=== PATIENT | female | born 2000 | race Caucasian/White ===

== ENCOUNTER 2018-04-28 21:49 | Emergency (ER) | payer BC ==
[~2018-04-28] VITALS: Ht 170.2 cm; Wt 102.7 kg
[2018-04-28 21:56] VITALS: BP 136/97; TEMP 97.6
[2018-04-28] MEDS ORDERED: PROZAC60 MG (22:02)
[2018-04-28 23:28] VITALS: PULSE 89
== END 2018-04-28 23:30 | disposition home or self-care (01) ==
LOC: COL.ER 21:49
DX: S61.211A Laceration without foreign body of left index finger without damage to nail, initial encounter (principal); W26.0XXA Contact with knife, initial encounter; Y92.009 Unspecified place in unspecified non-institutional (private) residence as the place of occurrence of the external cause

== ENCOUNTER 2018-05-06 13:49 | Emergency (ER) | payer BC ==
[~2018-05-06 13:49] MED LIST: PROZAC60 MG
[2018-05-06 14:00] VITALS: BP 127/65; PULSE 82; TEMP 97.2
== END 2018-05-06 14:10 | disposition home or self-care (01) ==
LOC: COL.ER 13:49
DX: S61.211D Laceration without foreign body of left index finger without damage to nail, subsequent encounter (principal); X58.XXXD Exposure to other specified factors, subsequent encounter